=== PATIENT | female | born 1985 | race Caucasian/White ===

== ENCOUNTER 2017-03-02 18:47 | Emergency (ER) | payer OTHER ==
--- NOTE | 2017-03-02 19:28 | ED NURSING NOTES ---
Clinical Report - Nurses Merged With [facility] [address] [place] [address] 03/02/2017 18:49 [id number] Triage time 18:58 Mar 02 2017. Acuity: LEVEL 4. Chief Complaint: (Breast pains has had mastitis in the past and it feels the same.). VINNY COMA SCORE: [place] Coma Scale: 15- eyes open spontaneously (4); best verbal response- oriented x 4 (5); best motor response- obeys commands (6). --19:02 Ashly Curz R.N. 18:57 03/02/17. BP: 126/84. HR: 67. RR: 18. O2 saturation: 100%. Temp: 98.0 F. Pain level now 0/10. --19:02 Ashly Cruz R.N. Weight: 56.6 kg stated. Height/Length: 65 inches Per Patient. BMI: 20.8. --19:02 Ashly Cruz R.N. Medications None. --19:00 Ashly Cruz R.N. Allergies Clindamycin. --19:00 Ashly Cruz R.N. History Arrived by private vehicle. Historian: patient. This started just prior to arrival. ( Redness under right breast and milk duct clogged on top of right breast. Patient has been nursing child since May.). No fever, weakness, cough, difficulty breathing or skin rash. Denies muscle aches. Treatment INFORMATION SYSTEMS TECHNICIAN: (pumping). PAST MEDICAL HX: Immunizations: up-to-date. The patient is lactating. SOCIAL HX: Former smoker, end date 2006. No alcohol use or drug use. SELF HARM ASSESSMENT: A self harm assessment was performed. The patient answered "no" to the question "Have you recently felt down, depressed, or hopeless?" and "Do you have thoughts of harming or killing yourself?". FALL RISK ASSESSMENT: Fall risk assessment completed. No fall risk identified. NUTRITIONAL RISK ASSESSMENT: The nutritional risk assessment revealed no deficiencies. FUNCTIONAL ASSESSMENT: Functional assessment: no impairments noted. LEARNING NEEDS ASSESSMENT: The learning needs assessment revealed no barriers. ABUSE ASSESSMENT: Abuse assessment: (yes) The patient was asked "Do you feel safe in your home?". SKIN INTEGRITY ASSESSMENT: Skin integrity risk assessment completed. No skin integrity risk identified. --19: Ashly Cruz R.N. PROBLEMS: Mastitis, associated with childbirth. --19: Ashly Cruz R.N. ADDITIONAL SURGERIES: Appendectomy. Breast Augmentation. --19: Ashly Cruz R.N. Interventions ID band on patient. --19: Ashly Cruz R.N. PHYSICAL ASSESSMENT Ambulatory to room. ( right breast redness with streaking.). GENERAL / NEURO / PSYCH: Alert. Oriented X 4. Appears in no acute distress. HEENT: Pupils equal, round and reactive to light. No facial asymmetry noted. Mucous membranes are pink. RESPIRATORY: Respirations not labored. Chest nontender. Breath sounds within normal limits. CVS: Normal sinus rhythm noted. Capillary refill less than 2 seconds. Pulses within normal limits. GI / : Abdomen soft and nontender and normal bowel sounds. SKIN: Skin intact. Skin is warm and dry. Normal skin turgor. --19:04 Ashly Cruz R.N. NURSING PROGRESS NOTES Monitoring of patient in place. Reassurance given. Call light placed in reach. Side rails up x 1. Bed placed in lowest position. Brakes of bed on. --19:04 Ashly Cruz R.N. ( ED PA performed physical exam. Witnessed by this RN.). --19:20 Florecita Alicea R.N. 19:33 03/02/2017 Tylenol (Acetaminophen) PO Tablets 650 mg given. Allergies verified and confirmed 5 rights. --19:38 Raquel Mondragon R.N. 19:33 03/02/2017 Keflex (Cephalexin) PO Capsules 500 mg given. Allergies verified and confirmed 5 rights. --19:38 Raquel Mondragon R.N. DISPOSITION / DISCHARGE Condition at departure: improved and stable. No learning barriers present. Discharge instructions provided and reviewed with the patient. Reviewed medication(s) side effects, precautions, dosing and course information. Prescription(s) given to the patient. Reviewed skin care instructions. Patient verbalized understanding. Written instructions provided in Mongolian. The patient was discharged home and unaccompanied at time of discharge. She left the Emergency Department ambulatory and via private vehicle. Patient driving. --19:40 Raquel Mondragon R.N. 19:38 03/02/17. BP: deferred. HR: deferred. RR: deferred. O2 saturation: deferred. Temp: deferred. Pain level now deferred. --19:40 Raquel Mondragon R.N. Departure time: 1934. --19:40 Raquel Mondragon R.N. Locked/Released at 03/02/2017 19:40 by Raquel Mondragon R.N.
--- NOTE | 2017-03-02 19:28 | ED ORDER SUMMARY ---
..... Patient: ALEXANDRIA CASAREZ OrderSheet [facility] VisitID: [id number] [address] [place] [address] 31y, F Registration Date/Time: 03/02/2017 ORDER SHEET Weight: 56.6 kg (stated) Allergies: Clindamycin GENERAL ORDERS: MEDICATION ORDERS: Tylenol PO 650 mg (NOW) (19:25 03/02/2017 EKterrancelesharmaine P.A.-C) (Ack 19:29 Mariza R.N.) (19:38 Mariza R.N.) Keflex PO 500 mg (NOW) (19:26 03/02/2017 Zak P.A.-C) (Ack 19:29 Mariza R.N.) (19:38 HAROONradburn R.N.) IV FLUIDS: ORDER SHEET NOTES: [Electronically signed by Raquel Mondragon R.N. (19:40 03/02/2017)] [Electronically signed by Yashira Nieves P.A.-C (20:56 03/02/2017)] [Electronically locked/signed by Raquel Mondragon R.N. (19:40 03/02/2017)]
--- NOTE | 2017-03-02 19:28 | ED ORDER SUMMARY ---
..... Patient: ALEXANDRIA CASAREZ OrderSheet [facility] VisitID: [id number] [address] [place] [address] 31y, F Registration Date/Time: 03/02/2017 ORDER SHEET Weight: 56.6 kg (stated) Allergies: Clindamycin GENERAL ORDERS: MEDICATION ORDERS: Tylenol PO 650 mg (NOW) (19:25 03/02/2017 EKterrancelesharmaine P.A.-C) (Ack 19:29 Mariza R.N.) (19:38 Mariza R.N.) Keflex PO 500 mg (NOW) (19:26 03/02/2017 Zak P.A.-C) (Ack 19:29 Mariza R.N.) (19:38 HAROONradburn R.N.) IV FLUIDS: ORDER SHEET NOTES: [Electronically signed by Raquel Mondragon R.N. (19:40 03/02/2017)] [Electronically signed by Yashira Nieves P.A.-C (20:56 03/02/2017)] [Electronically locked/signed by Raquel Mondragon R.N. (19:40 03/02/2017)]
--- NOTE | 2017-03-02 19:28 | ED CLINICAL REPORT ---
Clinical Report - Physicians/Mid Levels [facility] [address] [place] [address] 03/02/2017 18:49 Patient: ALEXANDRIA CASAREZ Time Seen: 20:54 Mar 02 2017. Arrived- By private vehicle. Historian- patient. HISTORY OF PRESENT ILLNESS Chief Complaint: SKIN RASH. This started today and is still present. It is described as painful. It has been located on the right breast. A cause has been identified. (patient reports she is breast-feeding and noted to have a rash and pain to her right breast today. Patient denies any fevers. Reports history of similar with previous breast-feeding and . Patient denies any discharge. Denies any new trauma to the right side. Patient denies any emesis.). REVIEW OF SYSTEMS No fever, chills, cough, hoarseness or eye irritation. No nausea or difficulty with urination. All systems otherwise negative, except as recorded above. SOCIAL HISTORY Former smoker. No alcohol use or drug use. ADDITIONAL NOTES The nursing notes have been reviewed. PHYSICAL EXAM Vital Signs: 03/02/2017 18:57 BP: 126/84. HR: 67. RR: 18. O2 saturation: 100%. Temp: 98.0 F. Appearance: Alert. ENT: Ears normal. Nose normal. Neck: Neck supple. CVS: Normal heart rate and rhythm. Heart sounds normal. Respiratory: No respiratory distress. Breath sounds normal. No wheezes. Skin: Skin warm. Erythema. Cellulitis (right upper axilla into the surrounding areolar structure of breast, no mass). Neuro: Oriented X 3. PROGRESS AND PROCEDURES Course of Care: chaperoned breast exam with Florecita CABRAL Discussed with patient option of antibiotic and not. She is hesitant for antibiotic use. Informed patient that she may try to warm packs Tylenol over the next 24 hours, more than likely she will require an antibiotic. Patient encouraged to continue activation of the right side. Patient notified that he'll be excreted her breastbone, and her child will have diarrhea more than likely. Patient informed initially place and safe medications. Patient reports previous possible reaction with clindamycin when this previously occurred another . Patient with no signs of abscess or mass for drainage. No discharge from the nipple. Patient is stable. Physical exam findings are improved. Symptoms better. Patient/family counseled. Disposition: Discharged. CLINICAL IMPRESSION Acute mastitis of the right breast associated with breast feeding. INSTRUCTIONS (warm packs continue breast feeding take TYLENOL). Prescription Medications: Keflex 500 mg: take 1 capsule orally every 6 hours for 10 days. Substitution is permissible. Follow-up: Follow up with your doctor in three days as needed. Understanding of the discharge instructions verbalized. (Electronically signed by Yashira Nieves P.A.-C 03/02/2017 20:56)
--- NOTE | 2017-03-02 19:28 | ED NURSING NOTES ---
Clinical Report - Nurses [facility] [address] [place] [address] 03/02/2017 18:49 [id number] Triage time 18:58 Mar 02 2017. Acuity: LEVEL 4. Chief Complaint: (Breast pains has had mastitis in the past and it feels the same.). VINNY COMA SCORE: [place] Coma Scale: 15- eyes open spontaneously (4); best verbal response- oriented x 4 (5); best motor response- obeys commands (6). --19:02 Ashly Cruz R.N. 18:57 03/02/17. BP: 126/84. HR: 67. RR: 18. O2 saturation: 100%. Temp: 98.0 F. Pain level now 0/10. --19:02 Ashly Cruz R.N. Weight: 56.6 kg stated. Height/Length: 65 inches Per Patient. BMI: 20.8. --19:02 Ashly Cruz R.N. Medications None. --19:00 Ashly Cruz R.N. Allergies Clindamycin. --19:00 Ashly Cruz R.N. History Arrived by private vehicle. Historian: patient. This started just prior to arrival. ( Redness under right breast and milk duct clogged on top of right breast. Patient has been nursing child since May.). No fever, weakness, cough, difficulty breathing or skin rash. Denies muscle aches. Treatment HARVEST CREW SUPERVISOR: (pumping). PAST MEDICAL HX: Immunizations: up-to-date. The patient is lactating. SOCIAL HX: Former smoker, end date 2006. No alcohol use or drug use. SELF HARM ASSESSMENT: A self harm assessment was performed. The patient answered "no" to the question "Have you recently felt down, depressed, or hopeless?" and "Do you have thoughts of harming or killing yourself?". FALL RISK ASSESSMENT: Fall risk assessment completed. No fall risk identified. NUTRITIONAL RISK ASSESSMENT: The nutritional risk assessment revealed no deficiencies. FUNCTIONAL ASSESSMENT: Functional assessment: no impairments noted. LEARNING NEEDS ASSESSMENT: The learning needs assessment revealed no barriers. ABUSE ASSESSMENT: Abuse assessment: (yes) The patient was asked "Do you feel safe in your home?". SKIN INTEGRITY ASSESSMENT: Skin integrity risk assessment completed. No skin integrity risk identified. --19: Ashly Cruz R.N. PROBLEMS: Mastitis, associated with childbirth. --19: Ashly Cruz R.N. ADDITIONAL SURGERIES: Appendectomy. Breast Augmentation. --19: Ashly Cruz R.N. Interventions ID band on patient. --19: Ashly Cruz R.N. PHYSICAL ASSESSMENT Ambulatory to room. ( right breast redness with streaking.). GENERAL / NEURO / PSYCH: Alert. Oriented X 4. Appears in no acute distress. HEENT: Pupils equal, round and reactive to light. No facial asymmetry noted. Mucous membranes are pink. RESPIRATORY: Respirations not labored. Chest nontender. Breath sounds within normal limits. CVS: Normal sinus rhythm noted. Capillary refill less than 2 seconds. Pulses within normal limits. GI / : Abdomen soft and nontender and normal bowel sounds. SKIN: Skin intact. Skin is warm and dry. Normal skin turgor. --19:04 Ashly Cruz R.N. NURSING PROGRESS NOTES Monitoring of patient in place. Reassurance given. Call light placed in reach. Side rails up x 1. Bed placed in lowest position. Brakes of bed on. --19:04 Ashyl Cruz R.N. ( ED PA performed physical exam. Witnessed by this RN.). --19:20 Florecita Alicea R.N. 19:33 03/02/2017 Tylenol (Acetaminophen) PO Tablets 650 mg given. Allergies verified and confirmed 5 rights. --19:38 Raquel Mondragon R.N. 19:33 03/02/2017 Keflex (Cephalexin) PO Capsules 500 mg given. Allergies verified and confirmed 5 rights. --19:38 Raquel Mondragon R.N. DISPOSITION / DISCHARGE Condition at departure: improved and stable. No learning barriers present. Discharge instructions provided and reviewed with the patient. Reviewed medication(s) side effects, precautions, dosing and course information. Prescription(s) given to the patient. Reviewed skin care instructions. Patient verbalized understanding. Written instructions provided in Kiswahili. The patient was discharged home and unaccompanied at time of discharge. She left the Emergency Department ambulatory and via private vehicle. Patient driving. --19:40 Raquel Mondragon R.N. 19:38 03/02/17. BP: deferred. HR: deferred. RR: deferred. O2 saturation: deferred. Temp: deferred. Pain level now deferred. --19:40 aRquel Mondragon R.N. Departure time: 1934. --19:40 Raquel Mondragon R.N. Locked/Released at 03/02/2017 19:40 by Raquel Mondragon R.N.
--- NOTE | 2017-03-02 19:28 | ED CLINICAL REPORT ---
Clinical Report - Physicians/Mid Levels [facility] [address] [place] [address] 03/02/2017 18:49 Patient: ALEXANDRIA CASAREZ Time Seen: 20:54 Mar 02 2017. Arrived- By private vehicle. Historian- patient. HISTORY OF PRESENT ILLNESS Chief Complaint: SKIN RASH. This started today and is still present. It is described as painful. It has been located on the right breast. A cause has been identified. (patient reports she is breast-feeding and noted to have a rash and pain to her right breast today. Patient denies any fevers. Reports history of similar with previous breast-feeding and . Patient denies any discharge. Denies any new trauma to the right side. Patient denies any emesis.). REVIEW OF SYSTEMS No fever, chills, cough, hoarseness or eye irritation. No nausea or difficulty with urination. All systems otherwise negative, except as recorded above. SOCIAL HISTORY Former smoker. No alcohol use or drug use. ADDITIONAL NOTES The nursing notes have been reviewed. PHYSICAL EXAM Vital Signs: 03/02/2017 18:57 BP: 126/84. HR: 67. RR: 18. O2 saturation: 100%. Temp: 98.0 F. Appearance: Alert. ENT: Ears normal. Nose normal. Neck: Neck supple. CVS: Normal heart rate and rhythm. Heart sounds normal. Respiratory: No respiratory distress. Breath sounds normal. No wheezes. Skin: Skin warm. Erythema. Cellulitis (right upper axilla into the surrounding areolar structure of breast, no mass). Neuro: Oriented X 3. PROGRESS AND PROCEDURES Course of Care: chaperoned breast exam with Florecita CABRAL Discussed with patient option of antibiotic and not. She is hesitant for antibiotic use. Informed patient that she may try to warm packs Tylenol over the next 24 hours, more than likely she will require an antibiotic. Patient encouraged to continue activation of the right side. Patient notified that he'll be excreted her breastbone, and her child will have diarrhea more than likely. Patient informed initially place and safe medications. Patient reports previous possible reaction with clindamycin when this previously occurred another . Patient with no signs of abscess or mass for drainage. No discharge from the nipple. Patient is stable. Physical exam findings are improved. Symptoms better. Patient/family counseled. Disposition: Discharged. CLINICAL IMPRESSION Acute mastitis of the right breast associated with breast feeding. INSTRUCTIONS (warm packs continue breast feeding take TYLENOL). Prescription Medications: Keflex 500 mg: take 1 capsule orally every 6 hours for 10 days. Substitution is permissible. Follow-up: Follow up with your doctor in three days as needed. Understanding of the discharge instructions verbalized. (Electronically signed by Yashira Nieves P.A.-C 03/02/2017 20:56)
--- NOTE | 2017-03-02 20:56 | ED MED RECONCILIATION SUMMARY ---
Patient: ALEXANDRIA CASAREZ Medication Reconciliation Report [facility] VisitID: [id number] [address] [place] [address] 31y, F Registration Date/Time: 03/02/2017 Weight: 56.6 kg Height/Length: 65 in. BMI: 20.8 ALLERGIES: Clindamycin The patient's Home Medications are listed below: NONE. The source(s) of the original Home Medication information: Not obtained. The following Medications were given to the patient in the Emergency Department: Tylenol [PO] PO 650 mg, administered: 03/02/2017 7:33:00 PM Keflex [PO] PO 500 mg, administered: 03/02/2017 7:33:00 PM The following Medications were prescribed to the patient: Keflex 500 mg: take 1 capsule orally every 6 hours for 10 days. Substitution is permissible. -- Yashira Nieves P.A.-C
--- NOTE | 2017-03-02 20:56 | ED MAR SUMMARY ---
..... Medication Administration Record [facility] [address] [place] [address] Patient: ALEXANDRIA CASAREZ Visit ID: [id number] 31y, F Weight: 56.6 kg Height/Length: 65 in BMI: 20.8 ALLERGIES: Clindamycin Given 19:03/02/2017 Raquel Mondragon R.N. Medication Administered: TYLENOL [PO] (ACETAMINOPHEN), Dose: 650 mg Tablets PO. Medication Ordered: Tylenol PO 650 mg (NOW). Given :03/02/2017 Raquel Mondragon RAzalea Medication Administered: KEFLEX [PO] (CEPHALEXIN), Dose: 500 mg Capsules PO. Medication Ordered: Keflex PO 500 mg (NOW).
--- NOTE | 2017-03-02 20:56 | ED DISCHARGE INSTRUCTIONS ---
Patient: ALEXANDRIA CASAREZ General Instructions [facility] VisitID: [id number] [address] [place] [address] 31y, F Registration Date/Time: 03/02/2017 Acute mastitis of the right breast associated with breast feeding. INSTRUCTIONS (warm packs continue breast feeding take TYLENOL). Prescription Medications: Keflex 500 mg: take 1 capsule orally every 6 hours for 10 days. Substitution is permissible. Follow-up: Follow up with your doctor in three days as needed. Understanding of the discharge instructions verbalized. ADDITIONAL INFORMATION Mastitis Mastitis is a bacterial infection in the breast. It is most common in nursing mothers and is usually a result of small cracks in the nipple. The infection is treated with antibiotics. If treatment is delayed or if the infection is severe, a pocket of pus (abscess) can form. This requires minor surgery to drain the pus. Sometimes the infection can spread into the bloodstream causing a more severe illness with fever and chills. Home Care: 1) It is important to keep the milk flowing from the infected breast. Continue breast feeding from both breasts as usual. This will not hurt the baby. If this is too painful, use a breast pump to remove milk from the infected side. This can be fed to your baby or discarded. 2) Apply a warm compress (a heating pad, hot water bottle or towel soaked in hot water) to the infected breast several times per day. 3) After each feeding, express a small amount of breast milk and apply to the nipples. This lubricates the nipples and helps heal small cracks in the tissue. 4) Soap dries the skin and removes protective oils. When bathing, clean the breast with water only, do not use soap. 5) Take all of the antibiotics prescribed. 6) Wearing a supportive bra can help with the pain. 7) [id number] breast creams are not recommended for treatment or prevention of mastitis. Follow Up: Make an appointment with your doctor in the next week to be sure your infection is healing properly. Get Prompt Medical Attention if any of the following occur: -- Fever over 100.4 F (38.0 C) for more than 2 days of antibiotic treatment -- Shaking chills -- Increasing breast pain or firmness in the breast -- Spreading area of redness Cephalexin Monohydrate Oral tablet What is this medicine? CEPHALEXIN (sef a CARMEN in) is a cephalosporin antibiotic. It is used to treat certain kinds of bacterial infections It will not work for colds, flu, or other viral infections. How should I use this medicine? Take this medicine by mouth with a full glass of water. Follow the directions on the prescription label. This medicine can be taken with or without food. Take your medicine at regular intervals. Do not take your medicine more often than directed. Take all of your medicine as directed even if you think you are better. Do not skip doses or stop your medicine early. Talk to your clinical counselor regarding the use of this medicine in children. While this drug may be prescribed for selected conditions, precautions do apply. What side effects may I notice from receiving this medicine? Side effects that you should report to your doctor or health manager medicare marketing as soon as possible: allergic reactions like skin rash, itching or hives, swelling of the face, lips, or tongue breathing problems pain or trouble passing urine redness, blistering, peeling or loosening of the skin, including inside the mouth severe or watery diarrhea unusually weak or tired yellowing of the eyes, skin Side effects that usually do not require medical attention (report to your doctor or health manager medicare marketing if they continue or are bothersome): gas or heartburn genital or anal irritation headache joint or muscle pain nausea, vomiting What may interact with this medicine? probenecid some other antibiotics What if I miss a dose? If you miss a dose, take it as soon as you can. If it is almost time for your next dose, take only that dose. Do not take double or extra doses. There should be at least 4 to 6 hours between doses. Where should I keep my medicine? Keep out of the reach of children. Store at room temperature between 59 and 86 degrees F (15 and 30 degrees C). Throw away any unused medicine after the expiration date. What should I tell my health care provider before I take this medicine? They need to know if you have any of these conditions: kidney disease stomach or intestine problems, especially colitis an unusual or allergic reaction to cephalexin, other cephalosporins, penicillins, other antibiotics, medicines, foods, dyes or preservatives or trying to get breast-feeding What should I watch for while using this medicine? Tell your doctor or health manager medicare marketing if your symptoms do not begin to improve in a few days. Do not treat diarrhea with over the counter products. Contact your doctor if you have diarrhea that lasts more than 2 days or if it is severe and watery. If you have diabetes, you may get a false-positive result for sugar in your urine. Check with your doctor or health manager medicare marketing. You have been given the following additional information: Mastitis Cephalexin Monohydrate Oral tablet (Electronically signed by Yashira Nieves P.A.-C 03/02/2017 20:56)
--- NOTE | 2017-03-02 20:56 | ED DISCHARGE INSTRUCTIONS ---
Patient: ALEXANDRIA CASAREZ General Instructions [facility] VisitID: [id number] [address] [place] [address] 31y, F Registration Date/Time: 03/02/2017 Acute mastitis of the right breast associated with breast feeding. INSTRUCTIONS (warm packs continue breast feeding take TYLENOL). Prescription Medications: Keflex 500 mg: take 1 capsule orally every 6 hours for 10 days. Substitution is permissible. Follow-up: Follow up with your doctor in three days as needed. Understanding of the discharge instructions verbalized. ADDITIONAL INFORMATION Mastitis Mastitis is a bacterial infection in the breast. It is most common in nursing mothers and is usually a result of small cracks in the nipple. The infection is treated with antibiotics. If treatment is delayed or if the infection is severe, a pocket of pus (abscess) can form. This requires minor surgery to drain the pus. Sometimes the infection can spread into the bloodstream causing a more severe illness with fever and chills. Home Care: 1) It is important to keep the milk flowing from the infected breast. Continue breast feeding from both breasts as usual. This will not hurt the baby. If this is too painful, use a breast pump to remove milk from the infected side. This can be fed to your baby or discarded. 2) Apply a warm compress (a heating pad, hot water bottle or towel soaked in hot water) to the infected breast several times per day. 3) After each feeding, express a small amount of breast milk and apply to the nipples. This lubricates the nipples and helps heal small cracks in the tissue. 4) Soap dries the skin and removes protective oils. When bathing, clean the breast with water only, do not use soap. 5) Take all of the antibiotics prescribed. 6) Wearing a supportive bra can help with the pain. 7) [id number] breast creams are not recommended for treatment or prevention of mastitis. Follow Up: Make an appointment with your doctor in the next week to be sure your infection is healing properly. Get Prompt Medical Attention if any of the following occur: -- Fever over 100.4 F (38.0 C) for more than 2 days of antibiotic treatment -- Shaking chills -- Increasing breast pain or firmness in the breast -- Spreading area of redness Cephalexin Monohydrate Oral tablet What is this medicine? CEPHALEXIN (sef a CARMEN in) is a cephalosporin antibiotic. It is used to treat certain kinds of bacterial infections It will not work for colds, flu, or other viral infections. How should I use this medicine? Take this medicine by mouth with a full glass of water. Follow the directions on the prescription label. This medicine can be taken with or without food. Take your medicine at regular intervals. Do not take your medicine more often than directed. Take all of your medicine as directed even if you think you are better. Do not skip doses or stop your medicine early. Talk to your child advocate regarding the use of this medicine in children. While this drug may be prescribed for selected conditions, precautions do apply. What side effects may I notice from receiving this medicine? Side effects that you should report to your doctor or health director career as soon as possible: allergic reactions like skin rash, itching or hives, swelling of the face, lips, or tongue breathing problems pain or trouble passing urine redness, blistering, peeling or loosening of the skin, including inside the mouth severe or watery diarrhea unusually weak or tired yellowing of the eyes, skin Side effects that usually do not require medical attention (report to your doctor or health director career if they continue or are bothersome): gas or heartburn genital or anal irritation headache joint or muscle pain nausea, vomiting What may interact with this medicine? probenecid some other antibiotics What if I miss a dose? If you miss a dose, take it as soon as you can. If it is almost time for your next dose, take only that dose. Do not take double or extra doses. There should be at least 4 to 6 hours between doses. Where should I keep my medicine? Keep out of the reach of children. Store at room temperature between 59 and 86 degrees F (15 and 30 degrees C). Throw away any unused medicine after the expiration date. What should I tell my health care provider before I take this medicine? They need to know if you have any of these conditions: kidney disease stomach or intestine problems, especially colitis an unusual or allergic reaction to cephalexin, other cephalosporins, penicillins, other antibiotics, medicines, foods, dyes or preservatives or trying to get breast-feeding What should I watch for while using this medicine? Tell your doctor or health director career if your symptoms do not begin to improve in a few days. Do not treat diarrhea with over the counter products. Contact your doctor if you have diarrhea that lasts more than 2 days or if it is severe and watery. If you have diabetes, you may get a false-positive result for sugar in your urine. Check with your doctor or health director career. You have been given the following additional information: Mastitis Cephalexin Monohydrate Oral tablet (Electronically signed by Yashira Nieves P.A.-C 03/02/2017 20:56)
--- NOTE | 2017-03-02 20:56 | ED MED RECONCILIATION SUMMARY ---
Patient: ALEXANDRIA CASAREZ Medication Reconciliation Report [facility] VisitID: [id number] [address] [place] [address] 31y, F Registration Date/Time: 03/02/2017 Weight: 56.6 kg Height/Length: 65 in. BMI: 20.8 ALLERGIES: Clindamycin The patient's Home Medications are listed below: NONE. The source(s) of the original Home Medication information: Not obtained. The following Medications were given to the patient in the Emergency Department: Tylenol [PO] PO 650 mg, administered: 03/02/2017 7:33:00 PM Keflex [PO] PO 500 mg, administered: 03/02/2017 7:33:00 PM The following Medications were prescribed to the patient: Keflex 500 mg: take 1 capsule orally every 6 hours for 10 days. Substitution is permissible. -- Yashira Nieves P.A.-C
--- NOTE | 2017-03-02 20:56 | ED MAR SUMMARY ---
..... Medication Administration Record Located Within [facility] [address] [place] [address] Patient: ALEXANDRIA CASAREZ Visit ID: [id number] 31y, F Weight: 56.6 kg Height/Length: 65 in BMI: 20.8 ALLERGIES: Clindamycin Given 19:03/02/2017 Raquel Mondragon R.N. Medication Administered: TYLENOL [PO] (ACETAMINOPHEN), Dose: 650 mg Tablets PO. Medication Ordered: Tylenol PO 650 mg (NOW). Given :03/02/2017 Raquel Mondragon RAzalea Medication Administered: KEFLEX [PO] (CEPHALEXIN), Dose: 500 mg Capsules PO. Medication Ordered: Keflex PO 500 mg (NOW).
== END 2017-03-02 19:35 | disposition home or self-care (01) ==
LOC: ED SRH 18:47
DX: O91.23 Nonpurulent mastitis associated with lactation (principal); Z88.1 Allergy status to other antibiotic agents; Z87.891 Personal history of nicotine dependence